=== PATIENT | female | born 1975 | race Caucasian/White ===

== ENCOUNTER 2018-07-06 22:23 | Emergency (ER) | payer MEDICAID, OTHER ==
[~2018-07-06] VITALS: Wt 74.6 kg
[2018-07-06 22:39] VITALS: BP 141/64; PULSE 91; RESP 20
[2018-07-06] MEDS ORDERED: PHEN177S43 MT (23:24)
[2018-07-06] MEDS ORDERED: ACET325T33 PO (23:24)
[2018-07-06] MEDS ORDERED: IBUP-1542 PO (23:24)
[2018-07-06] MEDS ORDERED: AMOX500C2 PO (23:24)
[2018-07-06] MEDS ORDERED: IBUPROFEN 600 MG TAB PO ONE (23:30)
--- NOTE | 2018-07-06 23:38 | ERD ---
ER Documentation Chief Complaint Chief Complaint BILATERAL EAR PAIN, FATIGUE, CHILLS X3 DAYS HPI Otherwise healthy 43-year-old female presenting to the emergency department complaining of sore throat intermittently for the past 3 days. Patient took ibuprofen at home with some relief. Symptoms are overall worse at night and are moderate to severe. Associated symptoms include body aches. The patient has had no sick contacts. She denies any other symptoms at this time. ROS All systems reviewed and are negative except as per history of present illness. Medications Home Meds Active Scripts Acetaminophen* (Tylenol*) 325 Mg Tablet, 2 TAB PO Q6 PRN for PAIN AND OR ELEVATED TEMP, #20 TAB Prov:JOANN MERAZ PA-C 07/06/18 Ibuprofen* (Motrin*) 600 Mg Tab, 600 MG PO Q6, #30 TAB Prov:JOANN MERAZ PA-C 07/06/18 Phenol* (Chloraseptic* Pemberton) 177 Ml Pemberton.pump, 2 SPRAY MT Q2H PRN for SORE THROAT, #1 BOTTLE Prov:JOANN MERAZ PA-C 07/06/18 Amoxicillin* (Amoxicillin*) 500 Mg Cap, 500 MG PO TID for 10 Days, CAP Prov:JOANN MERAZ PA-C 07/06/18 Allergies Allergies: Coded Allergies: No Known Allergy (Unverified , 08/11/12) PMhx/Soc Medical and Surgical Hx: pt denies Medical Hx, pt denies Surgical Hx History of Surgery: No Anesthesia Reaction: No Hx Neurological Disorder: No Hx Respiratory Disorders: No Hx Cardiac Disorders: No Hx Psychiatric Problems: No Hx Miscellaneous Medical Probl: No Hx Alcohol Use: No Hx Substance Use: No Hx Tobacco Use: No Smoking Status: Never smoker FmHx Family History: No diabetes Physical Exam Vitals Vital Signs Date Temp Pulse Resp B/P (MAP) Pulse Ox O2 O2 Flow FiO2 Time Delivery Rate 07/06/18 100.2 91 20 141/64 98 22:39 (89) Physical Exam Const: No acute distress Head: Atraumatic Eyes: Normal Conjunctiva ENT: Normal External Ears, Nose and Mouth. Bilateral tonsillar hypertrophy. Scant exudate noted. Uvula is midline. Airway is patent. Neck: Full range of motion. No meningismus. Resp: Clear to auscultation bilaterally Cardio: Regular rate and rhythm, no murmurs Skin: No petechiae or rashes Ext: No cyanosis, or edema Neur: Awake and alert Psych: Normal Mood and Affect Results 24 hrs Current Medications Medications Dose Sig/Julio Start Time Status Last (Trade) Ordered Route PRN Stop Time Admin Dose Reason Admin Ibuprofen 600 mg ONCE ONCE 07/06/18 DC 07/06/18 (Motrin) PO 23:30 23:24 07/06/18 23:31 Procedures/MDM 43-year-old female presenting to the emergency department with signs and symptoms most consistent with exudative pharyngitis. No evidence to suggest peritonsillar abscess, meningitis, sepsis, or other emergencies. The patient is stable and appropriate for further outpatient management with prescriptions for Tylenol, ibuprofen, Chloraseptic throat spray, amoxicillin. The patient was in agreement with the diagnosis, plan, need for follow-up, return precautions. Patient's blood pressure was elevated (>120/80) but appears stable without evidence of hypertension emergency or urgency. The patient is to follow-up and pursue outpatient monitoring and therapy with their primary care physician within 1 week and return immediately if they have any new, worsening, or concerning symptoms. Disclaimer: Inadvertent spelling and grammatical errors are likely due to EHR/dictation software use and do not reflect on the overall quality of patient care. Also, please note that the electronic time recorded on this note does not necessarily reflect the actual time of the patient encounter. Departure Diagnosis: Primary Impression: Exudative pharyngitis Condition: Fair Patient Instructions: Pharyngitis, Strep (Presumed) Referrals: [facility] YOU HAVE RECEIVED A MEDICAL SCREENING EXAM AND THE RESULTS INDICATE THAT YOU DO NOT HAVE A CONDITION THAT REQUIRES URGENT TREATMENT IN THE EMERGENCY DEPARTMENT. FURTHER EVALUATION AND TREATMENT OF YOUR CONDITION CAN WAIT UNTIL YOU ARE SEEN IN YOUR DOCTORS OFFICE WITHIN THE NEXT 1-2 DAYS. IT IS YOUR RESPONSIBILITY TO MAKE AN APPOINTMENT FOR FOLOW-UP CARE. IF YOU HAVE A PRIMARY DOCTOR --you should call your primary doctor and schedule an appointment IF YOU DO NOT HAVE A PRIMARY DOCTOR YOU CAN CALL OUR PHYSICIAN REFERRAL HOTLINE AT IF YOU CAN NOT AFFORD TO SEE A PHYSICIAN YOU CAN CHOSE FROM THE FOLLOWING [facility] [id number] [facility]. [facility] [address] [facility] [address] [facility]. [facility] [address] [facility]. [facility] [address] [facility]. [facility] [address] Additional Instructions: Call your primary care doctor TOMORROW for an appointment during the next 1-2 days.See the doctor sooner or return here if your condition worsens before your appointment time. JOANN MERAZ PA-C July 06, 2018 23:38
== END 2018-07-06 23:35 | disposition home or self-care (01) ==
LOC: FTE 22:23
DX: J02.8 Acute pharyngitis due to other specified organisms (principal); B96.89 Other specified bacterial agents as the cause of diseases classified elsewhere
CPT/HCPCS: Z7502; Z7610; 99283